=== PATIENT | male | born 1950 | race African-American/Black ===

== ENCOUNTER 2021-03-27 11:40 | Emergency (ER) | payer OTHER ==
[~2021-03-27] VITALS: Ht 170.2 cm; Wt 98.4 kg
[2021-03-27] MEDS ORDERED: INSULIN AS100 UNIT/6 (11:49)
[2021-03-27] MEDS ORDERED: BASAGLAR K100 UNIT/1 (11:49)
[2021-03-27] MEDS ORDERED: CLOP75 PO (11:49)
[2021-03-27] MEDS ORDERED: JARDIANCE25 MG (11:50)
[2021-03-27] MEDS ORDERED: LIDO700A20 TOP (11:50)
[2021-03-27] MEDS ORDERED: CHLO25B PO (11:50)
[2021-03-27] MEDS ORDERED: ASPI325 PO (11:51)
[2021-03-27] MEDS ORDERED: FELODIPINE ER10 M1 PO (11:51)
[2021-03-27] MEDS ORDERED: ROSU10TA PO (11:51)
[2021-03-27] MEDS ORDERED: Hytrin2 MG PO (11:51)
[2021-03-27] MEDS ORDERED: ERYT.5TO BOTHEYES (11:52)
[2021-03-27] MEDS ORDERED: POTA10T PO (11:52)
[2021-03-27] MEDS ORDERED: Garlic500 MG (11:53)
[2021-03-27] MEDS ORDERED: ARTIFICIAL TEA1 EAC6 BOTHEYES (11:53)
[2021-03-27] MEDS ORDERED: COENZYME Q-10200 M1 PO (11:54)
[2021-03-27] MEDS ORDERED: L-ARGININE500 MG (11:54)
[2021-03-27 12:22] LABS: BASOPHILS ABSOLUTE AUTO 0.05 K/mm3 (0.00-0.23); BASOPHILS PERCENT AUTO 1 % (0-2); EOSINOPHILS ABSOLUTE AUTO 0.08 K/mm3 (0.00-0.68); EOSINOPHILS PERCENT AUTO 1 % (0-6); Hematocrit 45.4 % (37.0-53.0); Hemoglobin 14.3 g/dL (13.5-17.5); IMMATURE GRAN ABSOLUTE AUTO 0.02 K/mm3 (0.00-0.10); IMMATURE GRAN PERCENT AUTO 0 % (0-1); LYMPHOCYTES ABSOLUTE AUTO 1.23 K/mm3 (0.84-5.20); LYMPHOCYTES PERCENT AUTO 13 % (21-46); MONOCYTES ABSOLUTE AUTO 0.69 K/mm3 (0.16-1.47); MONOCYTES PERCENT AUTO 8 % (4-13); Mean Corpuscular HGB 25.9 pg (26.0-34.0); Mean Corpuscular HGB Conc 31.5 g/dL (31.5-36.5); Mean Corpuscular Volume 82 fL (80-100); Mean Platelet Volume 9.7 fL (9.1-12.4); NEUTROPHILS ABSOLUTE AUTO 7.11 K/mm3 (1.96-9.15); NEUTROPHILS PERCENT AUTO 78 % (41-73); Platelet Count 240 K/mm3 (150-400); RDW Standard Deviation 47.8 fL (35.1-46.3); Red Blood Cell Count 5.52 M/mm3 (4.30-5.90); White Blood Cell Count 9.18 K/mm3 (4.00-11.30)
[2021-03-27 12:29] LABS: Bilirubin, Total 0.4 mg/dL (0.1-1.0); Bun/Creatinine Ratio 21.7 (12.0-20.0); Calcium, Blood 9.3 mg/dL (8.5-10.1); Creatinine, Blood 1.29 mg/dL (0.60-1.20); Globulin, Blood 4.1 g/dL (2.2-4.0); Total Protein, Blood 8.1 g/dL (6.4-8.2)
== END 2021-03-27 13:12 | disposition home or self-care (01) ==
LOC: EDSEX 11:40 → ER 11:40
PROVIDERS: Emergency Medicine
DX: R29.810 Facial weakness (principal); Z86.69 Personal history of other diseases of the nervous system and sense organs; Z79.02 Long term (current) use of antithrombotics/antiplatelets; Z79.4 Long term (current) use of insulin; Z79.899 Other long term (current) drug therapy
CPT/HCPCS: 70450; 71045; 80053; 85025; 93005; 93010; 99284-25